=== PATIENT | male | born 1970 | race Hispanic/Latino ===

== ENCOUNTER 2018-06-01 11:37 | Emergency (ER) | payer SELFPAY ==
[2018-06-01] MEDS ORDERED: ONDANSETRON HCL 4 MG/2 ML VIAL ONE (12:33)
[2018-06-01] MEDS ORDERED: MORPHINE SULFATE 4 MG/1ML SYG ONE (12:33)
[2018-06-01 12:38] LABS: BASOPHILS % (AUTO) 0.3 % (0.0-5.0); EOSINOPHILS % (AUTO) 0.2 % (0.0-8.0); HEMATOCRIT 49.1 % (42-54); LYMPHOCYTES % (AUTO) 4.6 % (21.0-51.0); MEAN CORPUSCULAR HEMOGLOBIN 28.1 pg (27.0-33.0); MEAN CORPUSCULAR HGB CONC 33.7 g/dL (32.0-36.0); MEAN CORPUSCULAR VOLUME 83.5 fL (79-99); MONOCYTES % (AUTO) 3.2 % (3.0-13.0); NEUTROPHILS % (AUTO) 91.7 % (40.0-77.0); NUCLEATED RED BLOOD CELLS 0.1 % (0.0-0.19); PLATELET COUNT (AUTO) 275 K/uL (130-400); RED BLOOD CELL COUNT(AUTO) 5.88 MIL/uL (4.50-6.20); RED CELL DISTRIBUTION WIDTH 13.2 % (11.0-15.5); WHITE BLOOD COUNT (AUTO) 11.2 K/uL (4.8-10.8)
[2018-06-01 12:48] LABS: CARBON DIOXIDE 22 mmol/L (21-32); CHLORIDE 99 mmol/L (101-111); GLUCOSE,RANDOM 351 mg/dL (70-105); POTASSIUM 4.8 mmol/L (3.5-5.1); SODIUM SERUM 136 mmol/L (136-145); UREA NITROGEN, BLOOD 15 mg/dL (7-18)
[2018-06-01 12:49] LABS: CREATININE 0.7 mg/dL (0.5-1.5); GLOMERULAR FILTR. RATE CALC 127 mL/min (>60)
[2018-06-01 12:53] LABS: ALANINE AMINOTRANSFERASE 29 U/L (12-78); ALBUMIN 4.1 g/dL (3.5-5.0); AMYLASE 33 U/L (25-115); ASPARTATE AMINOTRANSFERASE 11 U/L (10-37); LIPASE 104 U/L (114-286); TOTAL PROTEIN, SERUM 7.7 g/dL (6.0-8.3)
[2018-06-01 12:56] LABS: ACETONE,BLOOD NEGATIVE (NEGATIVE)
[2018-06-01 13:00] LABS: APPEARANCE,URINE Clear (CLEAR); BILIRUBIN,URINE Negative (NEGATIVE); COLOR,URINE Yellow (YELLOW); GLUCOSE, URINE (UA) >=1000 mg/dL (NEGATIVE); KETONES,URINE >=160 mg/dL (NEGATIVE); LEUKOCYTE ESTERASE ,URINE Negative (NEGATIVE); NITRATE,URINE Negative (NEGATIVE); OCCULT BLOOD,URINE Negative (NEGATIVE); PROTEIN,URINE Negative (NEGATIVE); UROBILINOGEN,URINE 0.2 mg/dL (0.2-1.0)
[2018-06-01 13:15] LABS: BACTERIA,URINE Rare /HPF (None Seen); RBC,URINE 0-1 /HPF (0-1); SPERM,URINE Rare /HPF (None Seen); SQUAMOUS EPITHELIAL CELL,UR Rare /HPF (0-2); WBC,URINE 0-1 /HPF (0-1)
[2018-06-01] MEDS ORDERED: FAMOTIDINE/PF 20 MG/2 ML VIAL IV ONE (14:36)
== END 2018-06-01 14:48 | disposition home or self-care (01) ==
LOC: EDH 11:37
DX: E11.65 Type 2 diabetes mellitus with hyperglycemia (principal); R11.2 Nausea with vomiting, unspecified; R10.13 Epigastric pain; Z79.4 Long term (current) use of insulin
CPT/HCPCS: 36415; 74176; 80053; 81001; 82009; 82150; 83690; 84484; 85025; 96361; 96374; 96375; 99284; J2270; J2405; J3490

== ENCOUNTER 2018-06-02 09:31 | Inpatient (IN) | payer SELFPAY ==
[~2018-06-02] VITALS: Ht 182.9 cm; Wt 88.7 kg
[2018-06-02 10:46] LABS: BASOPHILS % (AUTO) 0.3 % (0.0-5.0); EOSINOPHILS % (AUTO) 0.1 % (0.0-8.0); HEMATOCRIT 48.2 % (42-54); LYMPHOCYTES % (AUTO) 6.8 % (21.0-51.0); MEAN CORPUSCULAR HEMOGLOBIN 28.8 pg (27.0-33.0); MEAN CORPUSCULAR HGB CONC 33.9 g/dL (32.0-36.0); MEAN CORPUSCULAR VOLUME 84.8 fL (79-99); MONOCYTES % (AUTO) 5.3 % (3.0-13.0); NEUTROPHILS % (AUTO) 87.5 % (40.0-77.0); PLATELET COUNT (AUTO) 291 K/uL (130-400); RED BLOOD CELL COUNT(AUTO) 5.68 MIL/uL (4.50-6.20); RED CELL DISTRIBUTION WIDTH 13.7 % (11.0-15.5)
[2018-06-02 10:56] LABS: CREATININE 0.9 mg/dL (0.5-1.5); POTASSIUM 4.7 mmol/L (3.5-5.1)
[2018-06-02 11:02] LABS: ALBUMIN 3.9 g/dL (3.5-5.0); BILIRUBIN,TOTAL 0.7 mg/dL (0.2-1.0); TOTAL PROTEIN, SERUM 7.7 g/dL (6.0-8.3)
[2018-06-02] MEDS ORDERED: ONDANSETRON HCL 4 MG/2 ML VIAL ONE ×2 (11:14→22:30)
[2018-06-02] MEDS ORDERED: SODIUM CHLORIDE 0.9% 1000ML 1,000 ML IV ONE ×2 (11:14→14:13)
[2018-06-02] MEDS ORDERED: MORPHINE SULFATE 2 MG/ML 1ML SYG ONE (11:14)
[2018-06-02] MEDS ORDERED: SODIUM CHLORIDE 0.9% 100 ML IV ONE (11:15)
[2018-06-02] MEDS ORDERED: INSULIN HUMULIN R 100 UNIT/ML 3ML ONE (11:17)
[2018-06-02 11:49] LABS: APPEARANCE,URINE Clear (CLEAR); BILIRUBIN,URINE Negative (NEGATIVE); COLOR,URINE Yellow (YELLOW); GLUCOSE, URINE (UA) >=1000 mg/dL (NEGATIVE); KETONES,URINE >=160 mg/dL (NEGATIVE); LEUKOCYTE ESTERASE ,URINE Negative (NEGATIVE); NITRATE,URINE Negative (NEGATIVE); OCCULT BLOOD,URINE Negative (NEGATIVE); PROTEIN,URINE Trace (NEGATIVE); UROBILINOGEN,URINE 0.2 mg/dL (0.2-1.0)
[2018-06-02 12:08] LABS: INR 0.95 (0.85-1.15); PARTIAL THROMBOPLASTIN TIME 27.8 SEC (26.3-35.5)
[2018-06-02 12:22] LABS: ABG BASE EXCESS -14.7 mmol/L (-2.0-3.0); ABG HCO3 11.4 mmol/L (21.0-28.0); ABG OXYGEN SATURATION 98.3 % (95.0-99.0); ABG PCO2 28 mmHg (35-48)
[2018-06-02 12:28] LABS: AMPHET/METH SCREEN,URINE NEGATIVE (NEGATIVE); BARBITURATE SCREEN, URINE NEGATIVE (NEGATIVE); BENZODIAZEPINES SCREEN,URINE NEGATIVE (NEGATIVE); CANNABINOID SCREEN,URINE NEGATIVE (NEGATIVE); COCAINE SCREEN,URINE NEGATIVE (NEGATIVE); OPIATE SCREEN,URINE NEGATIVE (NEGATIVE); PHENCYCLIDINE SCREEN,URINE NEGATIVE (NEGATIVE)
[2018-06-02 12:29] LABS: BACTERIA,URINE None Seen /HPF (None Seen); MUCUS,URINE Rare LPF (None Seen); RBC,URINE None Seen /HPF (0-1); SQUAMOUS EPITHELIAL CELL,UR Rare /HPF (0-2); WBC,URINE None Seen /HPF (0-1)
[2018-06-02] MEDS ORDERED: SODIUM CHLORIDE 0.9% 1000ML 1,000 ML IV SCH ×2 (12:35)
[2018-06-02] MEDS ORDERED: DEXTROSE 5 %-0.45 % NACL 1,000 ML IV PRN ×2 (12:35→20:45)
[2018-06-02] MEDS ORDERED: POTASSIUM CHLORIDE 10MEQ/100ML 100 ML IV PRN ×2 (12:45→20:45)
[2018-06-02] MEDS ORDERED: MORPHINE SULFATE 2 MG/ML 1ML SYG IV PRN (12:45)
[2018-06-02] MEDS ORDERED: ONDANSETRON HCL MDV 20ML 2 MG/ML VIAL IVP PRN (13:00)
[2018-06-02] MEDS ORDERED: INSULIN HUMULIN R 100 UNIT/ML 3ML IV SCH (13:30)
[2018-06-02 14:48] LABS: CREATINE KINASE, TOTAL 19 U/L (21-232); MYOGLOBIN 44 ng/mL (10-92); TROPONIN I < 0.04 ng/mL (0.00-0.06)
[2018-06-02] MEDS ORDERED: KETOROLAC TROMETHAMINE 30MG/ML ONE ×2 (16:49→22:30)
[2018-06-02] MEDS ORDERED: DEXTROSE 5 %-0.45 % NACL 1,000 ML IV ONE (18:23)
[2018-06-02 20:43] LABS: ABG BASE EXCESS -6.5 mmol/L (-2.0-3.0); ABG HCO3 17.8 mmol/L (21.0-28.0); ABG OXYGEN SATURATION 98.7 % (95.0-99.0); ABG PCO2 33 mmHg (35-48)
[2018-06-02] MEDS: FAMOTIDINE/PF 20 MG/2 ML VIAL IV SCH (21:00)
[2018-06-02 21:12] LABS: CREATININE 0.9 mg/dL (0.5-1.5); MAGNESIUM 1.7 mg/dL (1.80-2.40); PHOSPHORUS 2.8 mg/dL (2.5-4.9); POTASSIUM 3.9 mmol/L (3.5-5.1)
[2018-06-02] MEDS: INSULIN HUMULIN R 100 UNIT/ML 3ML IV SCH (21:15)
[2018-06-02 21:27] LABS: CREATINE KINASE, TOTAL 19 U/L (21-232); MYOGLOBIN 32 ng/mL (10-92); TROPONIN I < 0.04 ng/mL (0.00-0.06)
[2018-06-03] MEDS ORDERED: MAGNESIUM 2GM PREMIX 50ML 50 ML IV ONE ×2 (00:07→20:39)
[2018-06-03] MEDS ORDERED: INSULIN HUMULIN R 100 UNIT/ML 3ML ONE (00:22)
[2018-06-03 01:39] LABS: CREATININE 0.7 mg/dL (0.5-1.5)
[2018-06-03] MEDS ORDERED: MORPHINE SULFATE 2 MG/ML 1ML SYG ONE ×2 (04:44→10:43)
[2018-06-03] MEDS ORDERED: ONDANSETRON HCL 4 MG/2 ML VIAL ONE ×2 (04:44→10:42)
[2018-06-03] MEDS ORDERED: KETOROLAC TROMETHAMINE 30MG/ML ONE ×2 (04:44→10:42)
[2018-06-03 07:16] LABS: BASOPHILS % (AUTO) 0.4 % (0.0-5.0); EOSINOPHILS % (AUTO) 0.4 % (0.0-8.0); LYMPHOCYTES % (AUTO) 12.4 % (21.0-51.0); MEAN CORPUSCULAR HEMOGLOBIN 28.8 pg (27.0-33.0); MEAN CORPUSCULAR VOLUME 84.7 fL (79-99); MONOCYTES % (AUTO) 8.6 % (3.0-13.0); NEUTROPHILS % (AUTO) 78.2 % (40.0-77.0); NUCLEATED RED BLOOD CELLS 0.2 % (0.0-0.19); PLATELET COUNT (AUTO) 273 K/uL (130-400); RED BLOOD CELL COUNT(AUTO) 5.32 MIL/uL (4.50-6.20); RED CELL DISTRIBUTION WIDTH 13.6 % (11.0-15.5); WHITE BLOOD COUNT (AUTO) 5.7 K/uL (4.8-10.8)
[2018-06-03 07:41] LABS: CREATININE 0.8 mg/dL (0.5-1.5); POTASSIUM 3.7 mmol/L (3.5-5.1)
[2018-06-03 07:58] LABS: HEMOGLOBIN A1C 11.8 % (4.0-6.0)
[2018-06-03 08:08] LABS: ALBUMIN 3.2 g/dL (3.5-5.0); BILIRUBIN,TOTAL 0.4 mg/dL (0.2-1.0); TOTAL PROTEIN, SERUM 6.6 g/dL (6.0-8.3)
[2018-06-03 08:14] LABS: PHOSPHORUS 2.5 mg/dL (2.5-4.9)
[2018-06-03 08:48] LABS: ABG BASE EXCESS -5.1 mmol/L (-2.0-3.0); ABG HCO3 19.5 mmol/L (21.0-28.0); ABG OXYGEN SATURATION 97.7 % (95.0-99.0); ABG PCO2 35 mmHg (35-48)
[2018-06-03] MEDS: FAMOTIDINE/PF 20 MG/2 ML VIAL IV SCH ×2 (09:00→21:00)
[2018-06-03] MEDS: ENOXAPARIN SODIUM 30 MG/0.3 ML SQ SCH (09:00)
[2018-06-03] MEDS ORDERED: ENOXAPARIN SODIUM 30 MG/0.3 ML SQ ONE (09:47)
[2018-06-03] MEDS ORDERED: FAMOTIDINE/PF 20 MG/2 ML VIAL IV ONE ×2 (09:48→20:39)
[2018-06-03] MEDS ORDERED: KETOROLAC TROMETHAMINE 30MG/ML IM PRN (10:45)
[2018-06-03 11:59] LABS: ABG BASE EXCESS -6.4 mmol/L (-2.0-3.0); ABG HCO3 18.3 mmol/L (21.0-28.0); ABG OXYGEN SATURATION 98.4 % (95.0-99.0); ABG PCO2 35 mmHg (35-48)
[2018-06-03 12:02] LABS: CREATININE 0.7 mg/dL (0.5-1.5); MAGNESIUM 1.9 mg/dL (1.80-2.40); POTASSIUM 3.3 mmol/L (3.5-5.1)
[2018-06-03] MEDS ORDERED: DEXTROSE 5 %-0.45 % NACL 1,000 ML IV ONE (14:53)
[2018-06-03 16:44] LABS: MAGNESIUM 1.9 mg/dL (1.80-2.40)
[2018-06-03 18:56] LABS: ABG BASE EXCESS -3.2 mmol/L (-2.0-3.0); ABG HCO3 20.6 mmol/L (21.0-28.0); ABG OXYGEN SATURATION 98.1 % (95.0-99.0); ABG PCO2 34 mmHg (35-48)
[2018-06-03 19:25] LABS: CREATININE 0.7 mg/dL (0.5-1.5); MAGNESIUM 1.9 mg/dL (1.80-2.40); POTASSIUM 3.3 mmol/L (3.5-5.1)
[2018-06-03] MEDS: INSULIN HUMULIN R 100 UNIT/ML 3ML IV SCH (21:15)
[2018-06-03 23:07] LABS: MAGNESIUM 2.1 mg/dL (1.80-2.40); PHOSPHORUS 2.7 mg/dL (2.5-4.9)
[2018-06-04] MEDS ORDERED: DEXTROSE 5 %-0.45 % NACL 1,000 ML IV ONE ×2 (00:27→07:34)
[2018-06-04 04:56] LABS: BASOPHILS % (AUTO) 0.5 % (0.0-5.0); EOSINOPHILS % (AUTO) 2.6 % (0.0-8.0); HEMATOCRIT 41.2 % (42-54); LYMPHOCYTES % (AUTO) 30.2 % (21.0-51.0); MEAN CORPUSCULAR HEMOGLOBIN 28.7 pg (27.0-33.0); MEAN CORPUSCULAR HGB CONC 34.1 g/dL (32.0-36.0); MEAN CORPUSCULAR VOLUME 84.2 fL (79-99); MONOCYTES % (AUTO) 10.2 % (3.0-13.0); NEUTROPHILS % (AUTO) 56.5 % (40.0-77.0); PLATELET COUNT (AUTO) 266 K/uL (130-400); RED BLOOD CELL COUNT(AUTO) 4.89 MIL/uL (4.50-6.20); RED CELL DISTRIBUTION WIDTH 13.7 % (11.0-15.5); WHITE BLOOD COUNT (AUTO) 5.5 K/uL (4.8-10.8)
[2018-06-04 05:15] LABS: CREATININE 0.7 mg/dL (0.5-1.5)
[2018-06-04] MEDS ORDERED: POTASSIUM CHLORIDE 20 MEQ ERTAB PO ONE ×3 (05:38→12:19)
[2018-06-04] MEDS ORDERED: FAMOTIDINE/PF 20 MG/2 ML VIAL IV ONE (08:28)
[2018-06-04] MEDS ORDERED: ENOXAPARIN SODIUM 30 MG/0.3 ML SQ ONE (08:28)
[2018-06-04 08:56] LABS: ABG BASE EXCESS -2.1 mmol/L (-2.0-3.0); ABG HCO3 21.8 mmol/L (21.0-28.0); ABG OXYGEN SATURATION 97.3 % (95.0-99.0); ABG PCO2 35 mmHg (35-48)
[2018-06-04] MEDS: FAMOTIDINE/PF 20 MG/2 ML VIAL IV SCH ×2 (09:00→21:32)
[2018-06-04] MEDS: ENOXAPARIN SODIUM 30 MG/0.3 ML SQ SCH (09:00)
[2018-06-04] MEDS ORDERED: INSLAN SQ (09:01)
--- NOTE | 2018-06-04 09:07 | NUR ---
ADVISED TO BRING HOME MEDICATIONS, HE STATED HE DOES NOT TAKE THEM AND HAS NOT HAD THE BOTTLES FOR A LONG TIME.
[2018-06-04] MEDS: SODIUM CHLORIDE 0.9% 1000ML 1,000 ML IV SCH ×2 (09:45→17:12)
[2018-06-04 11:14] LABS: CREATININE 0.6 mg/dL (0.5-1.5); POTASSIUM 3.6 mmol/L (3.5-5.1)
[2018-06-04] MEDS: INSULIN HUMULIN R 100 UNIT/ML 3ML SQ SCH ×3 (11:30→21:40)
[2018-06-04] MEDS ORDERED: INSULIN HUMULIN R 100 UNIT/ML 3ML ONE (12:20)
[2018-06-04] MEDS ORDERED: KETOROLAC TROMETHAMINE 30MG/ML ONE (12:33)
[2018-06-04] MEDS ORDERED: ONDANSETRON HCL 4 MG/2 ML VIAL ONE ×3 (12:33→15:29)
[2018-06-04] MEDS ORDERED: POTASSIUM CHLORIDE 20MEQ/100ML 100 ML IV ONE (13:22)
[2018-06-04] MEDS ORDERED: MORPHINE SULFATE 2 MG/ML 1ML SYG ONE ×2 (13:22→16:07)
[2018-06-04] MEDS ORDERED: LIDOCAINE HCL-MPF 1% 2ML VIAL ONE (14:28)
--- NOTE | 2018-06-04 15:16 | NUR ---
DC Plan Attempted to discuss dcp w/ patient. Stated, "I'm vomiting and do not want to talk right now." Per chart review, patient lives w/ and is independent. Anticipate dcp to home. CD Addendum: 06/04/18 at 1518 by JAYSON DAVIS CM Amended: Links added.
[2018-06-04 16:39] VITALS: BP 152/86
[2018-06-04 19:55] VITALS: BP 111/75
[2018-06-04] MEDS ORDERED: INSULIN GLARGINE 100 UNITS/ML 10 ML VIAL SQ SCH ×2 (21:00)
[2018-06-04 23:19] VITALS: BP 126/78
[2018-06-05 03:52] LABS: HEMATOCRIT 40.5 % (42-54); MEAN CORPUSCULAR HEMOGLOBIN 28.3 pg (27.0-33.0); MEAN CORPUSCULAR HGB CONC 34.2 g/dL (32.0-36.0); MEAN CORPUSCULAR VOLUME 82.9 fL (79-99); NUCLEATED RED BLOOD CELLS 0.2 % (0.0-0.19); PLATELET COUNT (AUTO) 237 K/uL (130-400); RED BLOOD CELL COUNT(AUTO) 4.89 MIL/uL (4.50-6.20); RED CELL DISTRIBUTION WIDTH 13.4 % (11.0-15.5); WHITE BLOOD COUNT (AUTO) 4.5 K/uL (4.8-10.8)
[2018-06-05 04:02] LABS: CREATININE 0.6 mg/dL (0.5-1.5); POTASSIUM 3.3 mmol/L (3.5-5.1)
[2018-06-05 04:12] VITALS: BP 128/75
[2018-06-05] MEDS: INSULIN HUMULIN R 100 UNIT/ML 3ML SQ SCH (07:17)
[2018-06-05] MEDS ORDERED: GLIPIZIDE 5 MG TABLET PO SCH (07:30)
[2018-06-05 07:53] VITALS: BP 123/77
[2018-06-05] MEDS: FAMOTIDINE/PF 20 MG/2 ML VIAL IV SCH (07:57)
[2018-06-05] MEDS: ENOXAPARIN SODIUM 30 MG/0.3 ML SQ SCH (07:57)
[2018-06-05] MEDS ORDERED: METFORMIN HCL 500 MG TABLET PO SCH (08:00)
--- NOTE | 2018-06-05 08:00 | NUR ---
ASSESSMENT PT IS AAXO4 DENIES CP DENIES SOB. RESTING IN BED SITTING UP. NO COMPLAINTS. FAMILY IS AT BEDSIDE, CALL LIGHT WITHIN REACH.
[2018-06-05] MEDS ORDERED: PEN1DIS.48 MC (08:14)
[2018-06-05] MEDS ORDERED: METF-445 PO (08:14)
[2018-06-05] MEDS ORDERED: GLIP5TAB11 PO (08:14)
[2018-06-05] MEDS ORDERED: INSU3INS3 SQ (08:14)
--- NOTE | 2018-06-05 10:11 | NUR ---
DISCHARGE PT VERBALIZE DC INSTRUCTIONS UNDERSTANDING AGREE TO TAKE MEDICATIONS ORDERED AGREE TO FOLLOW UP WITH PRIMARY MD ORDERED. ALL QUESTIONS ANSWERED, PIV REMOVED CATH TIP INTACT, TELE PACK REMOVED. ALL BELONGINGS TAKEN. DOWN VIA WC WITH FAMILY AND NURSE AIDE.
== END 2018-06-05 10:28 | disposition home or self-care (01) | DRG 638 ==
LOC: EDH 09:31 → EDHIP 09:32 → 2DH 06-04 16:10
PROVIDERS: ADMIT Hospitalist; ATTEND Hospitalist
DX: E11.10 Type 2 diabetes mellitus with ketoacidosis without coma (principal); E87.1 Hypo-osmolality and hyponatremia; E11.43 Type 2 diabetes mellitus with diabetic autonomic (poly)neuropathy; K31.84 Gastroparesis; F17.200 Nicotine dependence, unspecified, uncomplicated; Z91.19 Patient's noncompliance with other medical treatment and regimen; Z83.3 Family history of diabetes mellitus; Z82.49 Family history of ischemic heart disease and other diseases of the circulatory system
CPT/HCPCS: 36415; 36600; 80048; 80053; 80305; 82009; 82550; 82803; 82948; 83036; 83690; 83735; 83874; 84100; 84484; 85025; 85027; 85610; 85730; 93005; G0378; J1650; J1815; J1885; J2405; J3475; J3480; J3490; J7030; J7042

== ENCOUNTER 2018-07-29 16:00 | Emergency (ER) | payer OTHER ==
[~2018-07-29 16:00] MED LIST: GLIP5TAB11 PO; INSU3INS3 SQ; METF-445 PO; PEN1DIS.48 MC
[2018-07-29 16:35] LABS: BASOPHILS % (AUTO) 0.7 % (0.0-5.0); EOSINOPHILS % (AUTO) 2.5 % (0.0-8.0); HEMATOCRIT 45.5 % (42-54); LYMPHOCYTES % (AUTO) 26.8 % (21.0-51.0); MEAN CORPUSCULAR HEMOGLOBIN 29.2 pg (27.0-33.0); MEAN CORPUSCULAR HGB CONC 34.3 g/dL (32.0-36.0); MONOCYTES % (AUTO) 7.2 % (3.0-13.0); NEUTROPHILS % (AUTO) 62.8 % (40.0-77.0); PLATELET COUNT (AUTO) 264 K/uL (130-400); RED BLOOD CELL COUNT(AUTO) 5.36 MIL/uL (4.50-6.20); RED CELL DISTRIBUTION WIDTH 13.5 % (11.0-15.5); WHITE BLOOD COUNT (AUTO) 7.5 K/uL (4.8-10.8)
[2018-07-29 16:48] LABS: APPEARANCE,URINE Clear (CLEAR); BILIRUBIN,URINE Small (NEGATIVE); COLOR,URINE Dark Yellow (YELLOW); GLUCOSE, URINE (UA) 250 mg/dL (NEGATIVE); KETONES,URINE Trace mg/dL (NEGATIVE); LEUKOCYTE ESTERASE ,URINE Trace (NEGATIVE); NITRATE,URINE Negative (NEGATIVE); OCCULT BLOOD,URINE Negative (NEGATIVE); PH,URINE 5.5 (5.0-8.0); PROTEIN,URINE POS 1+ mg/dL (NEGATIVE)
[2018-07-29 17:10] LABS: CREATININE 0.7 mg/dL (0.5-1.5); POTASSIUM 3.9 mmol/L (3.5-5.1)
[2018-07-29 17:15] LABS: ALBUMIN 3.8 g/dL (3.5-5.0); BILIRUBIN,TOTAL 0.6 mg/dL (0.2-1.0); TOTAL PROTEIN, SERUM 7.3 g/dL (6.0-8.3)
[2018-07-29] MEDS ORDERED: KETOROLAC TROMETHAMINE 30MG/ML ONE (17:55)
[2018-07-29 18:05] LABS: BACTERIA,URINE None Seen /HPF (None Seen); MUCUS,URINE Many LPF (None Seen); RBC,URINE None Seen /HPF (0-1); SQUAMOUS EPITHELIAL CELL,UR 0-2 /HPF (0-2); WBC,URINE 0-1 /HPF (0-1)
== END 2018-07-29 19:08 | disposition home or self-care (01) ==
LOC: EDH 16:00
DX: N20.0 Calculus of kidney (principal); E11.9 Type 2 diabetes mellitus without complications
CPT/HCPCS: 36415; 74176; 76705; 80053; 81001; 82150; 83690; 84484; 85025; 93005; 96374; 99285; J1885

== ENCOUNTER 2018-10-29 22:31 | Emergency (ER) | payer OTHER ==
[2018-10-29] MEDS ORDERED: LIDOCAINE 2%-EPI 1:200,000 20 ML VIAL IJ ONE (23:32)
== END 2018-10-30 00:15 | disposition home or self-care (01) ==
LOC: EDH 22:31
DX: L02.414 Cutaneous abscess of left upper limb (principal); E11.9 Type 2 diabetes mellitus without complications; Z79.4 Long term (current) use of insulin; Z87.891 Personal history of nicotine dependence
CPT/HCPCS: J3490

== ENCOUNTER 2018-11-06 22:15 | Inpatient (IN) | payer SELFPAY ==
[~2018-11-06] VITALS: Ht 182.9 cm; Wt 87.1 kg
[2018-11-06 22:51] LABS: BASOPHILS % (AUTO) 0.2 % (0.0-5.0); HEMATOCRIT 45.3 % (42-54); LYMPHOCYTES % (AUTO) 2.1 % (21.0-51.0); MEAN CORPUSCULAR HEMOGLOBIN 29.1 pg (27.0-33.0); MEAN CORPUSCULAR HGB CONC 34.2 g/dL (32.0-36.0); MEAN CORPUSCULAR VOLUME 84.9 fL (79-99); NEUTROPHILS % (AUTO) 92.7 % (40.0-77.0); NUCLEATED RED BLOOD CELLS 0.1 % (0.0-0.19); PLATELET COUNT (AUTO) 242 K/uL (130-400); RED BLOOD CELL COUNT(AUTO) 5.33 MIL/uL (4.50-6.20); RED CELL DISTRIBUTION WIDTH 12.8 % (11.0-15.5); WHITE BLOOD COUNT (AUTO) 13.3 K/uL (4.8-10.8)
[2018-11-06] MEDS ORDERED: ACETAMINOPHEN EXTRA STRENGTH 500 MG TABLET ONE (22:58)
[2018-11-06] MEDS ORDERED: ONDANSETRON HCL 4 MG/2 ML VIAL ONE (22:58)
[2018-11-06] MEDS ORDERED: SODIUM CHLORIDE 0.9% 1000ML 1,000 ML IV ONE ×2 (22:59→23:43)
[2018-11-06 23:02] LABS: AMYLASE 22 U/L (25-115); CARBON DIOXIDE 24 mmol/L (21-32); CHLORIDE 96 mmol/L (101-111); CREATININE 0.9 mg/dL (0.5-1.5); GLOMERULAR FILTR. RATE CALC 95 mL/min (>60); GLUCOSE,RANDOM 287 mg/dL (70-105); LIPASE 66 U/L (114-286); POTASSIUM 3.8 mmol/L (3.5-5.1); SODIUM SERUM 133 mmol/L (136-145); UREA NITROGEN, BLOOD 16 mg/dL (7-18)
[2018-11-06 23:05] LABS: INR 0.99 (0.85-1.15); PARTIAL THROMBOPLASTIN TIME 29.9 SEC (26.3-35.5); PROTHROMBIN TIME 10.4 SEC (9.6-11.6)
[2018-11-06 23:06] LABS: APPEARANCE,URINE Clear (CLEAR); BILIRUBIN,URINE Small (NEGATIVE); COLOR,URINE Dark Yellow (YELLOW); GLUCOSE, URINE (UA) >=1000 mg/dL (NEGATIVE); KETONES,URINE >=160 mg/dL (NEGATIVE); LEUKOCYTE ESTERASE ,URINE Negative (NEGATIVE); NITRATE,URINE Negative (NEGATIVE); OCCULT BLOOD,URINE Negative (NEGATIVE); PH,URINE 5.5 (5.0-8.0); PROTEIN,URINE POS 2+ mg/dL (NEGATIVE)
[2018-11-06] MEDS ORDERED: CLINDAMYCIN 600 MG/D5% WATER 50 ML IV ONE (23:12)
[2018-11-06 23:13] LABS: ALANINE AMINOTRANSFERASE 17 U/L (12-78); ALBUMIN 3.8 g/dL (3.5-5.0); ASPARTATE AMINOTRANSFERASE 11 U/L (10-37); BILIRUBIN,TOTAL 0.9 mg/dL (0.2-1.0); CREATINE KINASE, TOTAL 32 U/L (21-232); MYOGLOBIN 29 ng/mL (10-92); TOTAL PROTEIN, SERUM 7.7 g/dL (6.0-8.3); TROPONIN I < 0.04 ng/mL (0.00-0.06)
[2018-11-06 23:20] LABS: BACTERIA,URINE None Seen /HPF (None Seen); MUCUS,URINE Moderate LPF (None Seen); RBC,URINE None Seen /HPF (0-1); SQUAMOUS EPITHELIAL CELL,UR Few /HPF (0-2); WBC,URINE None Seen /HPF (0-1); YEAST,URINE BUDDING None Seen /HPF (None Seen)
[2018-11-07] MEDS: SODIUM CHLORIDE 0.9% 1000ML 1,000 ML IV SCH ×3 (00:57→18:04)
[2018-11-07] MEDS ORDERED: LACTULOSE 20 GM/30 ML UDCUP PO PRN (01:00)
[2018-11-07] MEDS ORDERED: ONDANSETRON HCL 4 MG/2 ML VIAL IV PRN (01:00)
[2018-11-07] MEDS ORDERED: CLINDAMYCIN 600 MG/D5% WATER 50 ML IV SCH (01:00)
[2018-11-07 01:27] LABS: HEMOGLOBIN A1C 10.1 % (4.0-6.0)
[2018-11-07] MEDS ORDERED: SODIUM CHLORIDE 0.9% 1000ML 1,000 ML IV ONE (02:24)
--- NOTE | 2018-11-07 02:47 | NUR ---
PT ARRIVED AT THIS TIME. NO DISTRESS NOTED. ABLE TO AMBULATE TO BED WITHOUT ASSIST. NO SOB. ROOM AIR. IV PATENT. CONTINUES ON IV FLUIDS. PT STATES NO PAIN. WOUND IMAGES TAKEN AND PLACED ON CHART.
--- NOTE | 2018-11-07 03:40 | NUR ---
ABSCESS:2.7CM X 3CM. REDNESS NOTED AND MINIMAL SEROSANGUINEOUS DRAINAGE NOTED. STATES HAS HAD THIS FOR 2 WEEKS NOW.
[2018-11-07 03:59] VITALS: BP 123/77
[2018-11-07] MEDS: INSULIN HUMULIN R 100 UNIT/ML 3ML SQ SCH ×4 (06:58→22:38)
[2018-11-07 08:15] VITALS: BP 117/65
--- NOTE | 2018-11-07 08:30 | NUR ---
AM ASSESSMENT PT LAYING IN BED, HOB ELEVATED 30 DEGREES, RESTING. A/O X 3. NO SOB. NO DISTRESS NOTED. DENIES CHEST PAIN OR DISCOMFORT. DENIES PALPITATIONS. TELE: SR 90-STACH 100s. CECILIA N/V AND/OR DIARRHEA. 0.9% NACL INFUSING @ 100 ML/HR. UP AD ELDA. INSTRUCTED TO CALL FOR ASSISTANCE. CALL MÓNICA W/IN REACH.
[2018-11-07] MEDS: FAMOTIDINE 20MG TAB 20 MG TAB PO SCH ×2 (08:59→22:39)
[2018-11-07] MEDS: ENOXAPARIN SODIUM 40 MG/0.4 ML SYRINGE SQ SCH (09:00)
[2018-11-07] MEDS: INSULIN GLARGINE 100 UNITS/ML 10 ML VIAL SQ SCH (09:06)
[2018-11-07 11:12] VITALS: BP 138/77
[2018-11-07] MEDS ORDERED: VANCOMYCIN PROTOCOL PER PHARMACY IV SCH (13:30)
[2018-11-07] MEDS: CLINDAMYCIN 600 MG/D5% WATER 50 ML IV SCH ×2 (13:36→22:39)
--- NOTE | 2018-11-07 14:45 | NUR ---
TRANSFER TELEPHONE REPORT GIVEN TO KAY SMALL RN.
--- NOTE | 2018-11-07 14:53 | NUR ---
TRANSFER PT TRANSFERRED TO [facility] VIA BY LAVERN MUNOZ PCP. NO DISTRESS NOTED.
[2018-11-07] MEDS ORDERED: VANCOMYCIN 2 GM in SODIUM CHLORIDE 0.9% 500ML 500 ML IV SCH (15:00)
[2018-11-07 16:00] VITALS: BP 119/64
--- NOTE | 2018-11-07 16:24 | NUR ---
DC PLAN VISITED WITH PATIENT. PATIENT LIVES WITH ALONE. INDEPENDENT ABLE TO PERFORM ADL'S. PATIENT HAS NO SERVICES OR DME'S. FEELS SAFE TO RETURN HOME. WILL GIVE PATIENT LOW COST MEDICATION PACKET. 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 TOLD HIM ABOUT INSULIN AT [facility] FOR 24 DOLLARS A VIAL SAID WILL THINK ABOUT IT. Addendum: 11/07/18 at 1627 by MESHA SIMENTAL RN CM Amended: Links added.
[2018-11-07] MEDS: METFORMIN HCL 850 MG TABLET PO SCH (17:00)
[2018-11-07] MEDS: GLIPIZIDE 5 MG TABLET PO SCH (18:01)
[2018-11-07] MEDS: ACETAMINOPHEN 325 MG TAB PO PRN (18:15)
--- NOTE | 2018-11-07 18:16 | NUR ---
HEAD/TOE-ASSESSMENT/RECEIVED PT FROM U, NURSE DEION Addendum: 11/07/18 at 1821 by KAY SMALL RN RN PATIENT AAOX3, NO DISTRESS, DENIES ANY PAIN AT THIS TIME, RESPIRATIONS CLEAR TO A/P LUNG FONSECA BILATERALLY. IV INTACT TO RIGHT A/C 20G PATENT, STARTED IV FLUIDS NS AT 100ML/HR AND VANCO 500ML BAG. LEFT WRIST WOUND NOTED NON-DRAINING, NORMAL BOWEL SOUNDS PRESENT X 4 QUADRANTS, 2+ PULSES PRESENT TO KATHRYN RADIAL AND KATHRYN PEDAL. NO EDEMA, DENIES ANY RECENT FALLS. NO DISTRESS.
[2018-11-07 19:25] VITALS: BP 113/66
[2018-11-07 23:35] VITALS: BP 157/85
[2018-11-08] MEDS: VANCOMYCIN 1GM+NS 250ML IV SCH ×3 (00:05→15:08)
[2018-11-08] MEDS: MORPHINE SULFATE 2 MG/ML 1ML SYG IV PRN ×2 (03:29→17:20)
[2018-11-08 03:35] VITALS: BP 143/80
[2018-11-08 05:25] LABS: BASOPHILS % (AUTO) 0.2 % (0.0-5.0); HEMATOCRIT 39.3 % (42-54); LYMPHOCYTES % (AUTO) 5.9 % (21.0-51.0); MEAN CORPUSCULAR HEMOGLOBIN 29.1 pg (27.0-33.0); MEAN CORPUSCULAR HGB CONC 34.7 g/dL (32.0-36.0); MONOCYTES % (AUTO) 6.8 % (3.0-13.0); NEUTROPHILS % (AUTO) 87.1 % (40.0-77.0); PLATELET COUNT (AUTO) 146 K/uL (130-400); RED BLOOD CELL COUNT(AUTO) 4.68 MIL/uL (4.50-6.20); WHITE BLOOD COUNT (AUTO) 7.1 K/uL (4.8-10.8)
[2018-11-08 05:35] LABS: CREATININE 0.6 mg/dL (0.5-1.5); CRP QUANTITATIVE 228.3 mg/L (0.00-9.0); POTASSIUM 3.8 mmol/L (3.5-5.1)
[2018-11-08 06:16] LABS: ERYTHROCYTE SEDIMENTATION RATE 18 MM/HR (0-15)
[2018-11-08] MEDS: CLINDAMYCIN 600 MG/D5% WATER 50 ML IV SCH ×3 (06:28→21:11)
[2018-11-08] MEDS: SODIUM CHLORIDE 0.9% 1000ML 1,000 ML IV SCH (06:51)
[2018-11-08] MEDS: INSULIN HUMULIN R 100 UNIT/ML 3ML SQ SCH ×4 (06:52→20:37)
[2018-11-08 08:30] VITALS: BP 110/70
[2018-11-08] MEDS: INSULIN GLARGINE 100 UNITS/ML 10 ML VIAL SQ SCH ×2 (08:46→20:35)
[2018-11-08] MEDS: GLIPIZIDE 5 MG TABLET PO SCH ×2 (08:48→17:12)
[2018-11-08] MEDS: FAMOTIDINE 20MG TAB 20 MG TAB PO SCH ×2 (08:48→20:26)
[2018-11-08] MEDS: METFORMIN HCL 850 MG TABLET PO SCH ×2 (08:48→17:12)
[2018-11-08] MEDS: ENOXAPARIN SODIUM 40 MG/0.4 ML SYRINGE SQ SCH (08:49)
[2018-11-08 11:00] VITALS: BP 116/77
--- NOTE | 2018-11-08 15:18 | NUR ---
RD NOTIFICATION Primary Diagnosis: Hyperglycemia, Left wrist abscess. HX: DM non-compliant to meds, uncontrolled DM. BMI is 26.1; classified as overweight. Current diet is 75 CCD. PO intake is 5% X4 days, as per pt. He also stated he has no appetite. Meds: Lovenox, Pepcid, Glucophage, Glucotrol, Lantus, Humulin R, Zofran, Lactulose. Labs: A1C 10.1, EAG 243, Na 130, BG 184, Amylase 22, Lipase 66, CRP 228. Pt has not taken Lantus medication for one month and has an abscess on left wrist. No edema. RD recommends to continue current diet. RD provided Type 2 Diabetes Nutrition and Diet education. RD emphasized medication and glucose control. Pt asked questions, RD answered, and pt verbalized understanding. Handouts were left with pt to use as reference. RD will continue to monitor PO intake. Please notify RD if any nutritional concerns arise. Thank you. Addendum: 11/08/18 at [address] RD Amended: Links added.
--- NOTE | 2018-11-08 15:19 | NUR ---
EDUCATION RD provided Type 2 Diabetes Nutrition and Diet education. RD emphasized medication and glucose control. Pt asked questions, RD answered, and pt verbalized understanding. Handouts were left with pt to use as reference. Addendum: 11/08/18 at [address] RD Amended: Links added.
[2018-11-08 16:00] VITALS: BP 122/77
--- NOTE | 2018-11-08 16:00 | NUR ---
SURGEON CONSULT DOTTIE HARDY HERE TO SEE PATIENT. NEW ORDERS GIVEN.
[2018-11-08] MEDS ORDERED: COMPOUND IV REFRIGERATED 1 EACH IVSOLN MISC PRN (16:30)
[2018-11-08 20:01] VITALS: BP 129/81
[2018-11-08] MEDS: ACETAMINOPHEN 325 MG TAB PO PRN (20:26)
[2018-11-08] MEDS: VANCOMYCIN 1.25 GM in SODIUM CHLORIDE 0.9% 250 ML IV SCH (21:53)
[2018-11-09 00:46] VITALS: BP 115/72
[2018-11-09] MEDS: ACETAMINOPHEN 325 MG TAB PO PRN (02:34)
[2018-11-09 04:19] VITALS: BP 121/72
[2018-11-09 04:57] LABS: HEMATOCRIT 35.8 % (42-54); MEAN CORPUSCULAR HEMOGLOBIN 29.1 pg (27.0-33.0); MEAN CORPUSCULAR HGB CONC 35.3 g/dL (32.0-36.0); MEAN CORPUSCULAR VOLUME 82.2 fL (79-99); NUCLEATED RED BLOOD CELLS 0.1 % (0.0-0.19); PLATELET COUNT (AUTO) 154 K/uL (130-400); RED BLOOD CELL COUNT(AUTO) 4.36 MIL/uL (4.50-6.20); WHITE BLOOD COUNT (AUTO) 4.8 K/uL (4.8-10.8)
[2018-11-09] MEDS: CLINDAMYCIN 600 MG/D5% WATER 50 ML IV SCH (05:05)
[2018-11-09 05:08] LABS: CREATININE 0.5 mg/dL (0.5-1.5); POTASSIUM 3.5 mmol/L (3.5-5.1)
[2018-11-09] MEDS: VANCOMYCIN 1.25 GM in SODIUM CHLORIDE 0.9% 250 ML IV SCH ×3 (05:43→22:45)
[2018-11-09] MEDS: INSULIN HUMULIN R 100 UNIT/ML 3ML SQ SCH ×4 (07:00→21:25)
[2018-11-09 08:00] VITALS: BP 121/75
[2018-11-09] MEDS ORDERED: IPRATROPIUM/ALBUTEROL SULFATE 3 ML SOLUTION IH SCH (10:15)
[2018-11-09] MEDS: FAMOTIDINE 20MG TAB 20 MG TAB PO SCH ×2 (10:20→21:29)
[2018-11-09] MEDS: ENOXAPARIN SODIUM 40 MG/0.4 ML SYRINGE SQ SCH (10:20)
[2018-11-09] MEDS: GLIPIZIDE 5 MG TABLET PO SCH ×2 (10:21→16:45)
[2018-11-09] MEDS: METFORMIN HCL 850 MG TABLET PO SCH ×2 (10:21→16:44)
[2018-11-09] MEDS: INSULIN GLARGINE 100 UNITS/ML 10 ML VIAL SQ SCH ×2 (10:25→21:24)
[2018-11-09] MEDS ORDERED: ACETAMINOPHEN 325 MG TAB PO PRN (10:45)
[2018-11-09] MEDS: HYDROCODONE/ACETAMINOPHEN 5/325 MG TAB PO PRN ×2 (10:51→22:30)
[2018-11-09] MEDS: IPRATROPIUM/ALBUTEROL SULFATE 3 ML SOLUTION IH SCH ×2 (11:03→18:02)
[2018-11-09 12:00] VITALS: BP 126/82
[2018-11-09 16:00] VITALS: BP 121/78
[2018-11-09 20:00] VITALS: BP 126/82
[2018-11-10] VITALS: BP 117/75
[2018-11-10] MEDS: IPRATROPIUM/ALBUTEROL SULFATE 3 ML SOLUTION IH SCH ×5 (00:02→23:09)
[2018-11-10] MEDS ORDERED: GUAIFENESIN-DM 200/20 MG 10 ML ONE (00:45)
[2018-11-10 04:00] VITALS: BP 119/82
[2018-11-10 06:00] LABS: MEAN CORPUSCULAR HEMOGLOBIN 29.1 pg (27.0-33.0); MEAN CORPUSCULAR HGB CONC 35.1 g/dL (32.0-36.0); MEAN CORPUSCULAR VOLUME 82.8 fL (79-99); NUCLEATED RED BLOOD CELLS 0.1 % (0.0-0.19); PLATELET COUNT (AUTO) 162 K/uL (130-400); RED BLOOD CELL COUNT(AUTO) 4.23 MIL/uL (4.50-6.20); RED CELL DISTRIBUTION WIDTH 12.9 % (11.0-15.5)
[2018-11-10 06:13] LABS: CREATININE 0.6 mg/dL (0.5-1.5); POTASSIUM 3.4 mmol/L (3.5-5.1)
[2018-11-10] MEDS: INSULIN HUMULIN R 100 UNIT/ML 3ML SQ SCH ×4 (06:40→21:06)
[2018-11-10] MEDS: VANCOMYCIN 1.25 GM in SODIUM CHLORIDE 0.9% 250 ML IV SCH (06:43)
[2018-11-10 08:00] VITALS: BP 122/71
[2018-11-10] MEDS: ENOXAPARIN SODIUM 40 MG/0.4 ML SYRINGE SQ SCH (08:37)
[2018-11-10] MEDS: FAMOTIDINE 20MG TAB 20 MG TAB PO SCH ×2 (08:37→20:54)
[2018-11-10] MEDS: METFORMIN HCL 850 MG TABLET PO SCH ×2 (08:37→17:24)
[2018-11-10] MEDS: GLIPIZIDE 5 MG TABLET PO SCH ×2 (08:38→17:24)
[2018-11-10] MEDS: INSULIN GLARGINE 100 UNITS/ML 10 ML VIAL SQ SCH ×2 (08:44→21:02)
[2018-11-10 12:00] VITALS: BP 116/76
[2018-11-10] MEDS: VANCOMYCIN 1.5 GM in SODIUM CHLORIDE 0.9% 250 ML IV SCH ×2 (13:02→20:55)
[2018-11-10 16:00] VITALS: BP 132/73
[2018-11-10 20:00] VITALS: BP 116/67
[2018-11-10] MEDS: GUAIFENESIN-DM 200/20 MG 10 ML PO PRN (20:54)
[2018-11-11] VITALS: BP 119/70
[2018-11-11 04:00] VITALS: BP 121/73
[2018-11-11 05:29] LABS: HEMATOCRIT 36.2 % (42-54); MEAN CORPUSCULAR HGB CONC 34.9 g/dL (32.0-36.0); PLATELET COUNT (AUTO) 214 K/uL (130-400); RED BLOOD CELL COUNT(AUTO) 4.36 MIL/uL (4.50-6.20); WHITE BLOOD COUNT (AUTO) 4.8 K/uL (4.8-10.8)
[2018-11-11 05:39] LABS: CREATININE 0.6 mg/dL (0.5-1.5); POTASSIUM 3.3 mmol/L (3.5-5.1)
[2018-11-11] MEDS: VANCOMYCIN 1.5 GM in SODIUM CHLORIDE 0.9% 250 ML IV SCH ×3 (06:15→22:24)
[2018-11-11] MEDS: IPRATROPIUM/ALBUTEROL SULFATE 3 ML SOLUTION IH SCH ×4 (06:23→23:38)
[2018-11-11] MEDS: INSULIN HUMULIN R 100 UNIT/ML 3ML SQ SCH ×4 (07:23→21:00)
[2018-11-11 08:00] VITALS: BP 148/87
[2018-11-11] MEDS: METFORMIN HCL 850 MG TABLET PO SCH ×2 (08:02→16:24)
[2018-11-11] MEDS: FAMOTIDINE 20MG TAB 20 MG TAB PO SCH ×2 (08:02→22:19)
[2018-11-11] MEDS: GLIPIZIDE 5 MG TABLET PO SCH ×2 (08:03→16:25)
[2018-11-11] MEDS: ENOXAPARIN SODIUM 40 MG/0.4 ML SYRINGE SQ SCH (08:04)
[2018-11-11] MEDS: INSULIN GLARGINE 100 UNITS/ML 10 ML VIAL SQ SCH ×2 (08:08→22:18)
[2018-11-11 12:00] VITALS: BP 142/82
[2018-11-11] MEDS ORDERED: POTASSIUM CHLORIDE 20MEQ/100ML 100 ML IV PRN (12:15)
[2018-11-11] MEDS ORDERED: POTASSIUM CHLORIDE 10% ELIXIR 20 MEQ/15 ML UDCUP PO PRN (12:15)
[2018-11-11] MEDS ORDERED: LIDOCAINE HCL-MPF 1% 2ML VIAL IVP PRN (12:15)
[2018-11-11] MEDS: POTASSIUM CHLORIDE 20 MEQ ERTAB PO PRN ×3 (12:40→18:18)
[2018-11-11 16:00] VITALS: BP 124/67
[2018-11-11 19:20] VITALS: BP 135/81
[2018-11-11] MEDS: GUAIFENESIN-DM 200/20 MG 10 ML PO PRN (22:57)
[2018-11-12] VITALS (7 sets, daily range): BP systolic 104–149; BP diastolic 58–88
[2018-11-12] MEDS: INSULIN HUMULIN R 100 UNIT/ML 3ML SQ SCH ×4 (06:46→21:49)
[2018-11-12] MEDS: VANCOMYCIN 1.5 GM in SODIUM CHLORIDE 0.9% 250 ML IV SCH ×3 (06:50→22:00)
[2018-11-12] MEDS: IPRATROPIUM/ALBUTEROL SULFATE 3 ML SOLUTION IH SCH ×4 (06:51→23:24)
[2018-11-12 07:31] LABS: HEMATOCRIT 36.1 % (42-54); MEAN CORPUSCULAR HEMOGLOBIN 28.3 pg (27.0-33.0); MEAN CORPUSCULAR HGB CONC 33.8 g/dL (32.0-36.0); MEAN CORPUSCULAR VOLUME 83.7 fL (79-99); PLATELET COUNT (AUTO) 281 K/uL (130-400); RED BLOOD CELL COUNT(AUTO) 4.31 MIL/uL (4.50-6.20); RED CELL DISTRIBUTION WIDTH 13.3 % (11.0-15.5); WHITE BLOOD COUNT (AUTO) 6.1 K/uL (4.8-10.8)
[2018-11-12 07:51] LABS: CREATININE 0.5 mg/dL (0.5-1.5); POTASSIUM 3.7 mmol/L (3.5-5.1)
[2018-11-12] MEDS: METFORMIN HCL 850 MG TABLET PO SCH ×2 (09:28→17:48)
[2018-11-12] MEDS: ENOXAPARIN SODIUM 40 MG/0.4 ML SYRINGE SQ SCH (09:28)
[2018-11-12] MEDS: GLIPIZIDE 5 MG TABLET PO SCH ×2 (09:29→17:48)
[2018-11-12] MEDS: FAMOTIDINE 20MG TAB 20 MG TAB PO SCH ×2 (09:31→22:00)
[2018-11-12] MEDS: INSULIN GLARGINE 100 UNITS/ML 10 ML VIAL SQ SCH ×2 (09:34→21:49)
[2018-11-12 17:11] LABS: INR 0.95 (0.85-1.15)
--- NOTE | 2018-11-12 17:51 | NUR ---
DR COCHRAN ROUNDED ON PATIENT CONTINUE ON ANTIBIOTIC THERAPY VANCO PATIENT WILL NEED PICC LINE PLACEMENT.
[2018-11-12] MEDS: GUAIFENESIN-DM 200/20 MG 10 ML PO PRN (23:48)
[2018-11-13 04:23] VITALS: BP 136/90
[2018-11-13] MEDS: IPRATROPIUM/ALBUTEROL SULFATE 3 ML SOLUTION IH SCH ×2 (04:46→11:14)
[2018-11-13] MEDS: VANCOMYCIN 1.5 GM in SODIUM CHLORIDE 0.9% 250 ML IV SCH ×2 (05:06→14:36)
[2018-11-13 07:08] LABS: BASOPHILS % (AUTO) 0.5 % (0.0-5.0); HEMATOCRIT 36.4 % (42-54); MEAN CORPUSCULAR HEMOGLOBIN 28.9 pg (27.0-33.0); MEAN CORPUSCULAR HGB CONC 34.9 g/dL (32.0-36.0); MEAN CORPUSCULAR VOLUME 82.7 fL (79-99); MONOCYTES % (AUTO) 7.4 % (3.0-13.0); NEUTROPHILS % (AUTO) 70.1 % (40.0-77.0); PLATELET COUNT (AUTO) 338 K/uL (130-400); WHITE BLOOD COUNT (AUTO) 8.8 K/uL (4.8-10.8)
[2018-11-13 07:13] LABS: CREATININE 0.6 mg/dL (0.5-1.5); POTASSIUM 3.9 mmol/L (3.5-5.1)
[2018-11-13] MEDS: INSULIN HUMULIN R 100 UNIT/ML 3ML SQ SCH ×3 (07:30→16:42)
[2018-11-13 08:02] VITALS: BP 119/72
[2018-11-13] MEDS: METFORMIN HCL 850 MG TABLET PO SCH ×2 (08:10→16:36)
[2018-11-13] MEDS: GLIPIZIDE 5 MG TABLET PO SCH ×2 (08:11→16:38)
[2018-11-13] MEDS: FAMOTIDINE 20MG TAB 20 MG TAB PO SCH (09:02)
[2018-11-13] MEDS: INSULIN GLARGINE 100 UNITS/ML 10 ML VIAL SQ SCH (09:03)
[2018-11-13] MEDS: ENOXAPARIN SODIUM 40 MG/0.4 ML SYRINGE SQ SCH (09:06)
[2018-11-13 11:39] VITALS: BP 120/76
[2018-11-13] MEDS ORDERED: LINE600 PO (13:21)
[2018-11-13] MEDS ORDERED: VANCOMYCIN 1.75 GM in SODIUM CHLORIDE 0.9% 250 ML IV SCH (15:00)
--- NOTE | 2018-11-13 15:32 | NUR ---
DISCHARGE ORDER PLACED, PENDING ARRANGEMENT WITH CASE MANAGEMENT FOR MEDICATION AVAILABILITY.
[2018-11-13] MEDS: MORPHINE SULFATE 2 MG/ML 1ML SYG IV PRN (16:09)
--- NOTE | 2018-11-13 16:38 | NUR ---
CM Note: Pt given good rx coupon for [facility] and [facility] CM met with pt discussed prices on linezolid 600mg PO Q12 x 14 days. [facility] ponce 28 tablets w/good rx coupon $65.00, [facility] 28 tablets w/good rx coupon $91.00. Pt agreeable to both, stated was concern that it'll cost him more then $200. Pt stated will go to [facility] to fill rx, plan b to [facility]. Primary nurse aware. Safe to dc to home via private car. CM to cont to follow up.
[2018-11-13 16:45] VITALS: BP 91/48
--- NOTE | 2018-11-13 18:15 | NUR ---
PATIENT GIVEN DISCHARGE INSTRUCTIONS AND VERBALIZED UNDERSTANDING , IV REMOVE WITH CATHETER INTACT AND SITE DRESSED WITH BIND-AID . PATIENT GIVEN COUPON FROM CASE MANAGEMENT TO OBTAIN MEDICATION, AND STATES WILL FOLLOW-UP WITH HIS PRIMARY FOR BLOOD WORK CBC EVERY 7 DAYS WHILE TAKING ZYVOX. PATIENT WILL CALL AND MAKE APPOINTMENT FOR FOLLOW-UP WITH DR COCHRAN OFFICE NUMBER GIVEN. NO QUESTIONS OR CONCERNS AT THIS TIME . PATIENT WALK TO [place] AND LEFT HIS HIS CAR FOR HOME.
== END 2018-11-13 18:15 | disposition home or self-care (01) | DRG 872 ==
LOC: EDH 22:15 → UNDOADMIN 22:16 → EDHIP 22:16 → 2AH 11-07 02:45 → 3BH 11-07 15:05
PROVIDERS: ADMIT Internal Medicine; ATTEND Internal Medicine
DX: A41.02 Sepsis due to Methicillin resistant Staphylococcus aureus (principal); L02.414 Cutaneous abscess of left upper limb; I50.32 Chronic diastolic (congestive) heart failure; L03.114 Cellulitis of left upper limb; E11.9 Type 2 diabetes mellitus without complications; E66.9 Obesity, unspecified; E87.6 Hypokalemia; N61.1 Abscess of the breast and nipple; T38.3X6A Underdosing of insulin and oral hypoglycemic [antidiabetic] drugs, initial encounter; Z79.4 Long term (current) use of insulin; Z87.891 Personal history of nicotine dependence; Z91.14 Patient's other noncompliance with medication regimen; Y92.89 Other specified places as the place of occurrence of the external cause; Z68.26 Body mass index [BMI] 26.0-26.9, adult
CPT/HCPCS: 36415; 71045; 73110; 76882; 80048; 80053; 80202; 81001; 82010; 82150; 82550; 82948; 83036; 83605; 83690; 83874; 84484; 85025; 85027; 85610; 85651; 85730; 86140; 87040; 87070; 87076; 87077; 87088; 87186; 87804; 93005; 93306; 94640; 94664; 99291; G0378; J1650; J1815; J2405; J3370; J3490; J7030; J7040

== ENCOUNTER 2019-03-25 02:53 | Emergency (ER) | payer OTHER ==
[~2019-03-25 02:53] MED LIST changes: +LINE600T11 PO
[2019-03-25] MEDS ORDERED: SULFAMETHOX-TMP DS 800/160 TAB ONE (03:07)
[2019-03-25] MEDS ORDERED: LIDOCAINE 1%-EPI 1:100,000 20 ML VIAL IJ ONE (03:07)
[2019-03-25] MEDS ORDERED: CLINDAMYCIN 900 MG/D5% WATER 50 ML IV ONE (03:53)
[2019-03-25] MEDS ORDERED: SODIUM CHLORIDE 0.9% 1000ML 1,000 ML IV ONE (03:54)
[2019-03-25 03:57] LABS: BASOPHILS % (AUTO) 0.5 % (0.0-5.0); EOSINOPHILS % (AUTO) 2.6 % (0.0-8.0); HEMATOCRIT 43.2 % (42-54); LYMPHOCYTES % (AUTO) 23.2 % (21.0-51.0); MEAN CORPUSCULAR HEMOGLOBIN 28.1 pg (27.0-33.0); MEAN CORPUSCULAR HGB CONC 33.1 g/dL (32.0-36.0); MEAN CORPUSCULAR VOLUME 84.9 fL (79-99); MONOCYTES % (AUTO) 9.6 % (3.0-13.0); NEUTROPHILS % (AUTO) 63.7 % (40.0-77.0); PLATELET COUNT (AUTO) 278 K/uL (130-400); RED BLOOD CELL COUNT(AUTO) 5.09 MIL/uL (4.50-6.20); WHITE BLOOD COUNT (AUTO) 9.1 K/uL (4.8-10.8)
[2019-03-25 04:15] LABS: CREATININE 0.8 mg/dL (0.5-1.5); POTASSIUM 3.8 mmol/L (3.5-5.1)
[2019-03-25] MEDS ORDERED: KETOROLAC TROMETHAMINE 30MG/ML ONE (05:57)
== END 2019-03-25 06:15 | disposition home or self-care (01) ==
LOC: EDH 02:53
DX: L02.212 Cutaneous abscess of back [any part, except buttock and flank] (principal); E11.9 Type 2 diabetes mellitus without complications; Z87.891 Personal history of nicotine dependence
CPT/HCPCS: 10060; 36415; 80048; 82948 ×2; 85025; 96365; 96366; 96375; 99285; J1885; J3490 ×2; J7030

== ENCOUNTER 2019-08-27 15:03 | Emergency (ER) | payer SELFPAY ==
[2019-08-27] MEDS ORDERED: CLINDAMYCIN 900 MG/D5% WATER 50 ML IV ONE (15:35)
[2019-08-27] MEDS ORDERED: LIDOCAINE HCL 1% 20 ML VIAL ONE (15:53)
[2019-08-27 16:09] LABS: BASOPHILS % (AUTO) 0.3 % (0.0-5.0); EOSINOPHILS % (AUTO) 1.2 % (0.0-8.0); HEMATOCRIT 42.4 % (42-54); LYMPHOCYTES % (AUTO) 14.8 % (21.0-51.0); MEAN CORPUSCULAR HEMOGLOBIN 27.7 pg (27.0-33.0); MEAN CORPUSCULAR HGB CONC 34.2 g/dL (32.0-36.0); MEAN CORPUSCULAR VOLUME 80.9 fL (79-99); MONOCYTES % (AUTO) 7.2 % (3.0-13.0); NEUTROPHILS % (AUTO) 76.1 % (40.0-77.0); PLATELET COUNT (AUTO) 265 K/uL (130-400); RED BLOOD CELL COUNT(AUTO) 5.24 MIL/uL (4.50-6.20); RED CELL DISTRIBUTION WIDTH 12.8 % (11.0-15.5); WHITE BLOOD COUNT (AUTO) 9.2 K/uL (4.8-10.8)
[2019-08-27 16:23] LABS: CREATININE 0.8 mg/dL (0.5-1.5); POTASSIUM 4.4 mmol/L (3.5-5.1)
== END 2019-08-27 17:09 | disposition home or self-care (01) ==
LOC: EDH 15:03
DX: L02.01 Cutaneous abscess of face (principal); E11.9 Type 2 diabetes mellitus without complications; Z87.891 Personal history of nicotine dependence
CPT/HCPCS: 10060; 36415; 80048; 85025; 87040; 96365; 99284; J3490

== ENCOUNTER 2020-03-16 12:52 | Emergency (ER) | payer SELFPAY ==
[2020-03-16] MEDS ORDERED: KETOROLAC TROMETHAMINE 30MG/ML ONE (15:15)
[2020-03-16] MEDS ORDERED: ORPHENADRINE CITRATE 30 MG/ML ML ONE (15:15)
[2020-03-16 15:31] LABS: BASOPHILS % (AUTO) 0.7 % (0.0-5.0); EOSINOPHILS % (AUTO) 3.9 % (0.0-8.0); HEMATOCRIT 46.3 % (42-54); LYMPHOCYTES % (AUTO) 28.1 % (21.0-51.0); MEAN CORPUSCULAR HEMOGLOBIN 28.3 pg (27.0-33.0); MEAN CORPUSCULAR HGB CONC 34.3 g/dL (32.0-36.0); MEAN CORPUSCULAR VOLUME 82.4 fL (79-99); MONOCYTES % (AUTO) 7.3 % (3.0-13.0); NEUTROPHILS % (AUTO) 59.6 % (40.0-77.0); PLATELET COUNT (AUTO) 258 K/uL (130-400); RED BLOOD CELL COUNT(AUTO) 5.62 MIL/uL (4.50-6.20); RED CELL DISTRIBUTION WIDTH 13.1 % (11.0-15.5); WHITE BLOOD COUNT (AUTO) 7.2 K/uL (4.8-10.8)
[2020-03-16 15:48] LABS: CREATININE 0.7 mg/dL (0.5-1.5); POTASSIUM 4.3 mmol/L (3.5-5.1)
[2020-03-16 15:55] LABS: ALBUMIN 3.7 g/dL (3.5-5.0); BILIRUBIN,TOTAL 0.5 mg/dL (0.2-1.0); TOTAL PROTEIN, SERUM 7.4 g/dL (6.0-8.3)
== END 2020-03-16 17:34 | disposition home or self-care (01) ==
LOC: EDH 12:52
DX: M50.10 Cervical disc disorder with radiculopathy, unspecified cervical region (principal); E11.9 Type 2 diabetes mellitus without complications
CPT/HCPCS: 36415; 72125; 80053; 84484; 85025; 93005; 96372 ×2; 99285; J1885; J2360

== ENCOUNTER 2021-07-24 19:16 | Emergency (ER) | payer OTHER ==
[~2021-07-24] VITALS: Ht 182.9 cm; Wt 90.7 kg
[~2021-07-24 19:16] MED LIST changes: +DAPA5TAB PO; +GLIP10TA9 PO; +INSU100I24 SQ; +LINA5TAB PO; +LISI2.5T13 PO; +NAPR-1023 PO
[2021-07-24] MEDS ORDERED: KETOROLAC 15MG/ML VIAL (15MG/ML) IV ONE (20:00)
[2021-07-24 20:20] LABS: BASOPHILS % (AUTO) 0.6 % (0.0-5.0); EOSINOPHILS % (AUTO) 1.6 % (0.0-8.0); HEMATOCRIT 43.5 % (42-54); LYMPHOCYTES % (AUTO) 17.3 % (21.0-51.0); MEAN CORPUSCULAR HEMOGLOBIN 27.3 pg (27.0-33.0); MEAN CORPUSCULAR HGB CONC 32.6 g/dL (32.0-36.0); MEAN CORPUSCULAR VOLUME 83.7 fL (79-99); MONOCYTES % (AUTO) 8.4 % (3.0-13.0); NEUTROPHILS % (AUTO) 71.7 % (40.0-77.0); PLATELET COUNT (AUTO) 231 K/uL (130-400); WHITE BLOOD COUNT (AUTO) 8.5 K/uL (4.8-10.8)
[2021-07-24 20:35] LABS: CREATININE 0.7 mg/dL (0.5-1.5); POTASSIUM 4.4 mmol/L (3.5-5.1)
[2021-07-24 20:40] LABS: ALBUMIN 3.4 g/dL (3.5-5.0); BILIRUBIN,TOTAL 0.5 mg/dL (0.2-1.0); TOTAL PROTEIN, SERUM 7.1 g/dL (6.0-8.3)
[2021-07-24 21:18] VITALS: BP 118/72
[2021-07-24] MEDS ORDERED: AMOX-427 PO (21:18)
[2021-07-24] MEDS ORDERED: IBUP-1493 PO (21:18)
== END 2021-07-24 21:32 | disposition home or self-care (01) ==
LOC: EDH 19:16
DX: L03.115 Cellulitis of right lower limb (principal); E11.9 Type 2 diabetes mellitus without complications; Z79.1 Long term (current) use of non-steroidal anti-inflammatories (NSAID); Z79.4 Long term (current) use of insulin; Z79.899 Other long term (current) drug therapy
CPT/HCPCS: 36415; 73630; 80053; 84550; 85025; 96374; 99284; J1885

== ENCOUNTER 2022-04-16 15:17 | Emergency (ER) | payer OTHER ==
[~2022-04-16] VITALS: Ht 182.9 cm; Wt 95.3 kg
[~2022-04-16 15:17] MED LIST changes: +AMOX-427 PO; +IBUP-1493 PO
[2022-04-16 15:25] VITALS: BP 117/78
[2022-04-16] MEDS ORDERED: IBUPROFEN 600 MG TABLET PO ONE (16:00)
[2022-04-16] MEDS ORDERED: IBUP-2070 PO (16:34)
== END 2022-04-16 16:43 | disposition home or self-care (01) ==
LOC: EDH 15:17
DX: S16.1XXA Strain of muscle, fascia and tendon at neck level, initial encounter (principal); S46.911A Strain of unspecified muscle, fascia and tendon at shoulder and upper arm level, right arm, initial encounter; E11.9 Type 2 diabetes mellitus without complications; Z79.899 Other long term (current) drug therapy; V89.2XXA Person injured in unspecified motor-vehicle accident, traffic, initial encounter; Y93.I9 Activity, other involving external motion; Y92.488 Other paved roadways as the place of occurrence of the external cause; Y99.8 Other external cause status
CPT/HCPCS: 72040; 73030

== ENCOUNTER 2023-03-23 21:19 | Emergency (ER) | payer BC ==
[~2023-03-23] VITALS: Ht 172.7 cm; Wt 90.7 kg
[~2023-03-23 21:19] MED LIST changes: -GLIP5TAB11 PO; +GLIP5TAB15 PO; +IBUP-2070 PO
[2023-03-23 22:11] LABS: BASOPHILS # (AUTO) 0.05 K/uL (0.00-0.20); BASOPHILS % (AUTO) 0.6 % (0.0-5.0); EOSINOPHILS # (AUTO) 0.15 K/uL (0.00-0.70); EOSINOPHILS % (AUTO) 1.7 % (0.0-8.0); HEMATOCRIT 40.3 % (42-54); IMMATURE GRANULOCYTE ABSOLUTE 0.05 K/uL (0-1); LYMPHOCYTES # (AUTO) 1.9 K/uL (1.0-4.8); LYMPHOCYTES % (AUTO) 20.8 % (21.0-51.0); MEAN CORPUSCULAR HEMOGLOBIN 27.6 pg (27.0-33.0); MEAN CORPUSCULAR HGB CONC 34.2 g/dL (32.0-36.0); MEAN CORPUSCULAR VOLUME 80.6 fL (79-99); MONOCYTES # (AUTO) 0.9 K/uL (0.1-1.0); MONOCYTES % (AUTO) 9.8 % (3.0-13.0); NEUTROPHILS # (AUTO) 6.1 K/uL (1.8-7.7); NEUTROPHILS % (AUTO) 66.5 % (40.0-77.0); PLATELET COUNT (AUTO) 317 K/uL (130-400); RED CELL DISTRIBUTION WIDTH 13.2 % (11.0-15.5); WHITE BLOOD COUNT (AUTO) 9.1 K/uL (4.8-10.8)
[2023-03-23 22:22] LABS: CREATININE 1.4 mg/dL (0.5-1.5); POTASSIUM 4.3 mmol/L (3.5-5.1)
[2023-03-23 22:27] LABS: ALBUMIN 3.4 g/dL (3.5-5.0)
[2023-03-24] MEDS ORDERED: INSULIN HUMULIN R 100 UNIT/ML 3ML SQ ONE
[2023-03-24 00:30] LABS: APPEARANCE,URINE CLEAR (CLEAR); BILIRUBIN,URINE NEGATIVE (NEGATIVE); COLOR,URINE YELLOW (YELLOW); GLUCOSE, URINE (UA) >=1000 mg/dL (NEGATIVE); KETONES,URINE NEGATIVE (NEGATIVE); LEUKOCYTE ESTERASE ,URINE NEGATIVE Leu/uL (NEGATIVE); NITRATE,URINE NEGATIVE (NEGATIVE); PROTEIN,URINE 10 mg/dL (NEGATIVE)
[2023-03-24 00:31] LABS: ADD UA MICROSCOPIC YES
[2023-03-24] MEDS ORDERED: SULF1TAB42 PO (00:33)
[2023-03-24] MEDS ORDERED: CEPH500B PO (00:33)
[2023-03-24 00:41] LABS: WBC,URINE 0-1 /HPF (0-1)
[2023-03-24 00:42] LABS: BACTERIA,URINE None Seen /HPF (None Seen); SQUAMOUS EPITHELIAL CELL,UR Few /HPF (0-2)
[2023-03-24] MEDS ORDERED: ZOSYN 3.375GM +NS 50ML IV ONE (02:00)
[2023-03-24] MEDS ORDERED: VANCOMYCIN KIT 1 GM/250 ML IV.KIT IV ONE (02:00)
[2023-03-24] MEDS ORDERED: KETOROLAC 30MG VIAL (30MG/ML) IVP ONE (05:00)
[2023-03-24 05:07] VITALS: BP 127/60; PULSE 82; RESP 18; O2SAT 98
== END 2023-03-24 05:09 | disposition home or self-care (01) ==
LOC: EDH 21:19
DX: E10.65 Type 1 diabetes mellitus with hyperglycemia (principal); L03.116 Cellulitis of left lower limb; Z79.1 Long term (current) use of non-steroidal anti-inflammatories (NSAID); Z79.84 Long term (current) use of oral hypoglycemic drugs; Z79.899 Other long term (current) drug therapy
CPT/HCPCS: 99284; 80053; 85025; 87040 ×2; 83605; 81001; 36415; 73630; 96374; 93971; 96375; 96372; J1815; J1885; J2543; J3370